=== PATIENT | male | born 1960 | race Caucasian/White ===

== ENCOUNTER 2024-09-06 06:29 | Day surgery (SDC) | payer MEDICARE ==
[2024-09-06] MEDS: Lactated Ringers 1,000 ML IV SCH (06:40)
[2024-09-06] MEDS ORDERED: Midazolam 1 MG/ML 2 ML SDV ONE (06:53)
[2024-09-06] MEDS ORDERED: fentaNYL 50 MCG/ML SDV ONE (06:53)
[2024-09-06] MEDS ORDERED: Propofol 200 MG/20 ML SDV ONE ×2 (06:53→07:41)
== END 2024-09-06 09:04 | disposition home or self-care (01) ==
LOC: JP.SDS 06:29
PROVIDERS: ATTEND Surgery
DX: Z12.11 Encounter for screening for malignant neoplasm of colon (principal); D12.3 Benign neoplasm of transverse colon; K63.5 Polyp of colon; K57.30 Diverticulosis of large intestine without perforation or abscess without bleeding; Z80.0 Family history of malignant neoplasm of digestive organs
CPT/HCPCS: 00811-QZ; 88305; J2250; J2704; J3010; J7120